=== PATIENT | female | born 1975 | race Asian ===

== ENCOUNTER 2023-04-14 05:50 | Day surgery (SDC) | payer OTHER, SELFPAY ==
[2023-04-14 06:09] VITALS: BMI 28.3
[2023-04-14 06:10] VITALS: BP 122/85; BMI 28.3
[2023-04-14] MEDS: TYLENOL 1000 MG PO (06:22)
[2023-04-14] MEDS: CELEBREX 200 MG PO (06:22)
[2023-04-14] MEDS: NORMOSOL-R 1000 IV (06:22)
[2023-04-14 07:30] VITALS: BP 107/83
[2023-04-14 07:45] VITALS: BP 116/86
[2023-04-14 08:00] VITALS: BP 134/100
== END 2023-04-14 08:50 | disposition home or self-care (01) ==
LOC: SDS 05:50
PROVIDERS: ATTENDING PHYSICIAN Specialist
DX: M76.52 Patellar tendinitis, left knee (principal)
CPT/HCPCS: 27350